=== PATIENT | female | born 1955 | race Caucasian/White ===

== ENCOUNTER 2016-09-16 22:09 | Emergency (ER) | payer MEDICAID, MEDICARE ==
[~2016-09-16] VITALS: Ht 152.4 cm; Wt 75.0 kg
[~2016-09-16 22:09] MED LIST: BACL10TA PO; BUPR150T12 PO; CHOL10008 PO; CITA20TA11 PO; CYAN500T53 SL; FLUT9.9S NS; IODI150T PO; KRIL500C PO; LEVO50TA6 PO; LORA1TAB PO; OMPR20CCR PO; SIMV40TA5 PO; SUMA6KIT SQ; SUMA6VIA18 SQ; TRAM50TA2 PO; TRAZ-118 PO
[2016-09-16 22:13] VITALS: BP 140/86; PULSE 91; RESP 18; O2SAT 97
--- NOTE | 2016-09-17 00:56 | ED.REPORT ---
HPI-Headache Date of Service Sep 17, 2016 ED Provider: Richmond Hart MD This patient is a 60 year old female with a history of migraines who presents to the ED complaining of a migraine that started 2 days ago. This migraine is worse than usual, and her normal medications are not relieving her symptoms. Pt. states she usually takes Imitrex for migraines. She denies vision changes, nausea, vomiting, fever, chest pain, neck fine, or speech changes. Pt also mentions that she has been taking Amoxicillin for a tooth infection. Nursing Notes Stated Complaint: MIGRAINE Chief Complaint: Headache Nursing Notes Reviewed: Yes Allergies: Coded Allergies: No Known Allergies (Verified Allergy, Unknown, 10/17/15) Scheduled Baclofen (Baclofen) 10 Mg Tablet 10 MG PO TID Bupropion ER (Bupropion ER) 150 Mg Tablet.er 150 MG PO BID Citalopram (Citalopram) 20 Mg Tablet 20 MG PO DAILY Levothyroxine (Levothyroxine) 50 Mcg Tablet 75 MCG PO DAILY Omeprazole (Prilosec) 20 Mg Capcr 20 MG PO BID Simvastatin (Simvastatin) 40 Mg Tablet 40 MG PO HS Trazodone (Trazodone) 100 Mg Tablet 100 MG PO HS Scheduled PRN Lorazepam (Lorazepam) 1 Mg Tablet 1 MG PO DAILY PRN PRN For Shortness of Breath Sumatriptan Succinate (Imitrex) 6 Mg/0.5 Ml Cartridge 6 MG SQ PRN For Headache Sumatriptan Succinate (Sumatriptan Succinate) 6 Mg/0.5 Ml Vial 6 MG SQ ASDIRECTED PRN PRN Headache use at onset of headache, may repeat after greater than one hour, do not exceed 12 mg daily Tramadol (Tramadol) 50 Mg Tablet 50 MG PO HS PRN PRN For Pain Miscellaneous Medications Cholecalciferol (Vitamin D3) (Vitamin D3) 1,000 Unit Tab.chew 1,000 UNIT PO Cyanocobalamin (Vitamin B-12) (Vitamin B-12) 500 Mcg Tab.subl 500 MCG SL Fluticasone Propionate (Flonase Allergy Relief) 50 Mcg/Actuation [place].susp 9.9 ML NS Iodine (Kelp) 150 Mcg Tablet 150 MCG PO Krill Oil (Krill Oil) 500 Mg Capsule 500 MG PO General Time Seen by MD: 00:55 Chief Complaint Migraine headache Hx Obtained From: Patient Arrived By: Walk-in Sudden in Onset?: No Onset Occurred: 2 days ago Symptom Duration: Since onset Recent Healthcare: No recent doctor visit, No recent hospitalization Similar Sx Previous: Yes Past Medical History Past Medical History Arhtirits Headache Hiatal hernia Anxiety Reports: GERD, Mental illness Reports: Depression, Migraines, Thyroid disease Past Surgical History Bladder surgery Reports: Tubal ligation Family History Migraines - Half brother Reports: Diabetes mellitus, Hypertension, Stroke Smoking History Current Every Day Smoker Social History Alcohol Use: Denies alcohol use Drug Use: Denies drug use Other Social History: Good social support, Lives alone, Local resident Ambulatory Status Independent Review of Systems Review of Systems Note: denies changes in speech Basic Review of Systems Respiratory: No shortness of breath, No cough, No wheeze Cardiovascular: No chest pain : No dysuria, No frequency Constitutional: Denies: Fever GI: Denies: Nausea, Vomiting Musculoskeletal: Denies: Neck pain Neurologic: Denies: Vision change Complete sys rev & neg: except as marked. Physical Exam Initial Vital Signs Vital Signs (First) Date Time Temp Pulse Resp B/P Pulse Ox O2 Delivery O2 Flow Rate FiO2 09/16/16 22:13 37.0 91 18 140/86 97 Room Air Initial VS: Reviewed ENT: Mucous membranes moist, Conjunctiva normal, No scleral icterus Respiratory: Breath sounds normal, Clear to auscultation, No respiratory distress Cardiovascular: Regular rate & rhythm, Heart sounds normal, Intact distal pulses Extremities: Vascular intact, Neuro intact Skin: Warm, Dry, No cyanosis Psychiatric: Mood/affect normal, Behavior normal, Normal thought content General/Constitutional: Awake, Alert, Well developed Head / Eyes: Atraumatic, Normocephalic, PERRL Neck: Atraumatic, Full range of motion Neurologic: Oriented X3, Speech NL, No motor deficits, No sensory deficits, CN II - XII intact Re-Eval/Medical Decision Med Decision/Clinical Course 60-year-old female history of migraines presenting with typical migraine for her. Patient was given Toradol and Reglan and her symptoms resolved. Discharged home in good condition with return precautions. Source of Hx: Old records Re-Evaluation/Progress : Time of Eval: 02:35 )( Patient Status: Condition improved Re-Evaluation/Progress Note: Pt. feels better after shot of toradol. Ready for discharge. Pt. understands and agrees with plan. All questions have been addressed at this time. Counseled Regarding: Diagnosis, Need for follow-up, When/why to return to ED Discharge & Departure Impression: Primary Impression: Migraine Migraine type: without aura Status migrainosus presence: without status migrainosus Intractability: not intractable Qualified Code: G43.009 - Migraine without aura, not intractable, without status migrainosus Disposition: Home Discharge Condition All VS Reviewed: Yes Condition: Stable Patient Instructions: Migraine Headache (ED) Additional Instructions: Thank you for entrusting your care with us today. Please follow up with your primary care provider for further evaluation. Return to the emergency room for fever, changes in vision/speech, difficulty swallowing, weakness/numbness/ tingling, worsening headache, or new or other concerning symptoms. Referrals: Anat Barrett (PCP) Scribe Attestation Portions of this note were transcribed by Darrel Vazquez and Anca Bunch. I, Dr. Hart personally performed the history, physical exam and medical decision-making; I reviewed and confirmed the accuracy of the information in the transcribed note. Signed by: Darrel Vazquez and Neelima Quezada, 2016 and 0306. copies to: Anat Barrett Ben M MD Sep 17, 2016 00:56 Yamilka Bunch [Anca] Sep 17, 2016 01:03 DARREL VAZQUEZ Sep 17, 2016 03:06
[2016-09-17] MEDS ORDERED: Ketorolac 30 mg/mL 2 mL Inj IM ONE (01:05)
[2016-09-17] MEDS ORDERED: MetoCLOpramide 5 mg/mL 2 mL Inj IM ONE (01:05)
[2016-09-17 03:02] VITALS: BP 102/67; PULSE 99; RESP 16; O2SAT 96
== END 2016-09-17 03:00 | disposition home or self-care (01) ==
LOC: SED 22:09
DX: G43.009 Migraine without aura, not intractable, without status migrainosus (principal); K04.7 Periapical abscess without sinus; K21.9 Gastro-esophageal reflux disease without esophagitis; E07.9 Disorder of thyroid, unspecified; F17.200 Nicotine dependence, unspecified, uncomplicated

== ENCOUNTER 2016-10-12 16:54 | Emergency (ER) | payer MEDICAID, MEDICARE ==
[~2016-10-12] VITALS: Ht 152.4 cm; Wt 75.0 kg
[2016-10-12 17:16] VITALS: BP 107/79; PULSE 95; RESP 18; O2SAT 95
--- NOTE | 2016-10-12 18:18 | ED.REPORT ---
HPI-Dental/Mouth Prob Date of Service Oct 12, 2016 ED Provider: Neeraj Lunsford PA-C There is a 61-year-old female presents with chief complaint of tooth pain she reports that she was seen at [facility] for this 2 weeks ago antibiotics and oxycodone. She reports it got better. She reports this began to throb again become more painful. She has appointment October 29 to be seen by dentist. She has a history of ulcers and migraines. Denies discharge, foul taste, fever or chills, malaise, vomiting, diarrhea, abdominal pain. Nursing Notes Stated Complaint: TOOTH ACHE Chief Complaint: Dental Nursing Notes Reviewed: Yes Allergies: Coded Allergies: No Known Allergies (Verified Allergy, Unknown, 10/17/15) Scheduled Baclofen (Baclofen) 10 Mg Tablet 10 MG PO TID Bupropion ER (Bupropion ER) 150 Mg Tablet.er 150 MG PO BID Citalopram (Citalopram) 20 Mg Tablet 20 MG PO DAILY Levothyroxine (Levothyroxine) 50 Mcg Tablet 75 MCG PO DAILY Omeprazole (Prilosec) 20 Mg Capcr 20 MG PO BID Simvastatin (Simvastatin) 40 Mg Tablet 40 MG PO HS Trazodone (Trazodone) 100 Mg Tablet 100 MG PO HS Scheduled PRN Lorazepam (Lorazepam) 1 Mg Tablet 1 MG PO DAILY PRN PRN For Shortness of Breath Sumatriptan Succinate (Imitrex) 6 Mg/0.5 Ml Cartridge 6 MG SQ PRN For Headache Sumatriptan Succinate (Sumatriptan Succinate) 6 Mg/0.5 Ml Vial 6 MG SQ ASDIRECTED PRN PRN Headache use at onset of headache, may repeat after greater than one hour, do not exceed 12 mg daily Tramadol (Tramadol) 50 Mg Tablet 50 MG PO HS PRN PRN For Pain Miscellaneous Medications Cholecalciferol (Vitamin D3) (Vitamin D3) 1,000 Unit Tab.chew 1,000 UNIT PO Cyanocobalamin (Vitamin B-12) (Vitamin B-12) 500 Mcg Tab.subl 500 MCG SL Fluticasone Propionate (Flonase Allergy Relief) 50 Mcg/Actuation [place].susp 9.9 ML NS Iodine (Kelp) 150 Mcg Tablet 150 MCG PO Krill Oil (Krill Oil) 500 Mg Capsule 500 MG PO General Time Seen by MD: 17:57 Chief Complaint Tooth pain Past Medical History Past Medical History Arhtirits Headache Hiatal hernia Anxiety Reports: GERD, Mental illness Reports: Depression, Migraines, Thyroid disease Past Surgical History Bladder surgery Reports: Tubal ligation Family History Migraines - Half brother Reports: Diabetes mellitus, Hypertension, Stroke Smoking History Current Every Day Smoker Social History Alcohol Use: Denies alcohol use Drug Use: Denies drug use Other Social History: Good social support, Lives alone, Local resident Ambulatory Status Independent Review of Systems Review of Systems Note: Negative unless stated otherwise in history of present illness Physical Exam General: Well appearing, well developed, well nourished, no acute distress. Head: Atraumatic, normocephalic. Eyes: No scleral icterus or injection. No discharge. Vision grossly intact. Mouth: Several caries, including a fairly large one in tooth 15 which is entirely nontender. Mild tenderness to percussion and tooth 14. No redness, swelling, discharge. No abscess noted ENT: Voice clear, hearing grossly intact. Skin: Warm and dry. Neurological: Grossly nonfocal. Psychological: alert and oriented. Speech appropriate, linear and logical. Behavior appropriate. Initial Vital Signs Vital Signs (First) Date Time Temp Pulse Resp B/P Pulse Ox O2 Delivery O2 Flow Rate FiO2 10/12/16 17:16 36.6 95 18 107/79 95 Room Air Re-Eval/Medical Decision Med Decision/Clinical Course I discussed this case with Dr. Yen. 61-year-old femalewith dental infection 2 weeks ago presents to the emergency department because of recurrence of throbbing pain in the tooth. She reports she has an appointment in approximately 2 weeks to be seen by dentist. I see no signs of infection to be treated with antibiotics. Patient reports she is unable to take acetaminophen because it aggravates her migraines, or ibuprofen because she has an ulcer. I advised her to avoid further however very cold foods and to try to move her dental appointment up. Provided return precautions Discharge & Departure Primary Impression: Toothache Disposition: Home Discharge Condition All VS Reviewed: Yes Condition: Stable Patient Instructions: Dental Caries (ED) Additional Instructions: Evaluation for tooth pain in the emergency department. Physical reveals an obvious cavity in your left upper tooth, however I find no abscess, discharge, redness, swelling or tenderness. I do not believe antibiotics are indicated at this time. Unfortunately the pain medications that typically recommended for the situation, acetaminophen and ibuprofen do not work for you due to your history of migraines and ulcers. I am sorry I do not have more to offer. I suggest avoiding very hot or very cold food. Follow-up with a dentist as soon as possible, consider calling her dentist to see if he can possibly get an earlier appointment, perhaps when there is a cancellation. Return to emergency department for any new or worsening symptoms including fever, swelling in your mouth, difficulty breathing or swallowing. Referrals: Anat Barrett (PCP) EDSupervising Provider for APC: Darell Yen DO copies to: Anat Barrett Seth PA-C Oct 12, 2016 18:18
[2016-10-12 19:11] VITALS: BP 110/79; PULSE 89; RESP 18; O2SAT 95
== END 2016-10-12 18:45 | disposition home or self-care (01) ==
LOC: SED 16:54
DX: K08.89 Other specified disorders of teeth and supporting structures (principal); K21.9 Gastro-esophageal reflux disease without esophagitis; F17.200 Nicotine dependence, unspecified, uncomplicated